=== PATIENT | male | born 1950 | race Caucasian/White ===

== ENCOUNTER → 2023-12-02 09:07 | Outpatient (REF) | payer MEDICARE, OTHER, SELFPAY | LOC: RAD 09:07 | PROVIDERS: ATTENDING PHYSICIAN Specialist; FAMILY PHYSICIAN Family Medicine | DX: N20.0 Calculus of kidney (principal) | CPT/HCPCS: 74018 ==

== ENCOUNTER 2023-12-10 09:14 | Outpatient (RCR) | payer MEDICARE, OTHER, SELFPAY | END 2023-12-10 23:59 | disposition home or self-care (01) | LOC: RPT 09:14 | PROVIDERS: ATTENDING PHYSICIAN Orthopaedic Surgery; FAMILY PHYSICIAN Family Medicine | DX: M47.816 Spondylosis without myelopathy or radiculopathy, lumbar region (principal); M54.16 Radiculopathy, lumbar region; Z73.6 Limitation of activities due to disability | CPT/HCPCS: 97110; 97162 ==

== ENCOUNTER 2024-01-07 08:55 | Outpatient (RCR) | payer MEDICARE, OTHER, SELFPAY | END 2024-01-09 10:27 | disposition home or self-care (01) | LOC: RPT 08:55 | PROVIDERS: ATTENDING PHYSICIAN Orthopaedic Surgery; FAMILY PHYSICIAN Family Medicine | DX: M47.816 Spondylosis without myelopathy or radiculopathy, lumbar region (principal); M54.16 Radiculopathy, lumbar region; Z73.6 Limitation of activities due to disability | CPT/HCPCS: 97110; 97140 ==

== ENCOUNTER → 2025-02-12 13:59 | Outpatient (REF) | payer MEDICARE, OTHER, SELFPAY ==
[2025-02-12 16:23] LABS: Blood Urea Nitrogen 19 mg/dl (9-20)
== END ==
LOC: REG 13:59
PROVIDERS: ATTENDING PHYSICIAN Physical Medicine & Rehabilitation
DX: M54.16 Radiculopathy, lumbar region (principal)
CPT/HCPCS: 36415; 82565; 84520

== ENCOUNTER → 2025-04-16 10:55 | Outpatient (REF) | payer MEDICARE, OTHER, SELFPAY | LOC: MRI 3T 10:55 | PROVIDERS: ATTENDING PHYSICIAN Physical Medicine & Rehabilitation; FAMILY PHYSICIAN Family Medicine | DX: M54.16 Radiculopathy, lumbar region (principal); Z98.890 Other specified postprocedural states | CPT/HCPCS: 72158; A9575 ==

== ENCOUNTER 2025-05-07 20:12 | Observation (INO) | payer MEDICARE, OTHER, SELFPAY ==
[2025-05-07] VITALS (10 sets, daily range): BP systolic 137–205; BP diastolic 80–112; BMI 20.4
[2025-05-07 16:03] LABS: Hematocrit 41.6 % (39.0-52.0); Hemoglobin 14.0 g/dL (13.0-18.0); Mean Corp Hgb Conc. 33.7 g/dL (33.0-37.0); Mean Corpuscular Volume 97.9 fL (80.0-94.0); Nucleated Red Blood Cells % 0 % (-); Platelet Count 213 10^3/uL (130-400); Red Cell Dist. Width 12.4 % (11.5-14.5)
[2025-05-07 16:20] LABS: ALT (SGPT) 22 U/L (0-50); AST (SGOT) 28 U/L (17-59); Albumin 4.9 g/dl (3.5-5.0); Alkaline Phosphatase 55 U/L (38-126); Blood Urea Nitrogen 20 mg/dl (9-20); Calcium 10.3 mg/dl (8.4-10.2); Carbon Dioxide 26 mmol/L (22-30); Chloride 104 mmol/L (98-107); Glucose 94 mg/dl (70-99); Potassium 5.7 mmol/L (3.5-5.1); Sodium 138 mmol/L (135-145); Total Protein 7.9 g/dl (6.3-8.2); eGFR > 60.00
--- NOTE | 2025-05-07 17:42 | ED.GENMED ---
History of Present Illness
<Bijan Tompkins MD, Resident - Last Filed: 05/07/25 19:24>
General
Chief Complaint: Blood Pressure Problem
Time Seen by Provider: 05/07/25 17:24
History of Present Illness
History of Present Illness:
75 yo M PMH HTN, HLD, anxiety, spinal stenosis p/w hypertension to 180-190s systolic since Saturday (after he received an epidural to manage spinal stenosis pain).
At home, he takes atenolol 25mg and reports that his BP was well controlled with 120-130s systolic / 60-70s diastolic. He reports no clear precipitating event other than the epidural on Saturday, and Mohs surgery of left ear this past Saturday. No
change to diet, no starting/stopping medications.
he denies headache, blurry vision, chest pain, dyspnea, abdominal pain, new focal numbness or weakness.
<Yamilet Breen MD - Last Filed: 05/07/25 20:34>
General
Source: patient
Exam Limitations: none
Nursing documentation reviewed up to this point in time: agreed with
Past History
<Bijan Tompkins MD, Resident - Last Filed: 05/07/25 19:24>
Past History
ED Past Medical History: HTN
ED Past Surgical History: Orthopedic
Social History
Tobacco: Non-smoker
Alcohol: None
Drug: None
<Yamilet Breen MD - Last Filed: 05/07/25 20:34>
Family History
Family History: Other
Review of Systems
<Bijan Tompkins MD, Resident - Last Filed: 05/07/25 19:24>
Review of Systems
Constitutional: Reports no symptoms
EENT: Reports no symptoms
Respiratory: Reports no symptoms
Cardiac: Reports no symptoms
ABD/GI: Reports no symptoms
Neurological: Reports no symptoms
<Yamilet Breen MD - Last Filed: 05/07/25 20:34>
Review of Systems
Allergies reviewed?: Yes
: Reports no symptoms
Musculoskeletal: Reports no symptoms
Skin: Reports no symptoms
Endocrine: Reports no symptoms
Hematologic/Lymphatic: Reports no symptoms
Psychiatric: Reports no symptoms
Phy Exam
<Bijan Tompkins MD, Resident - Last Filed: 05/07/25 19:24>
Physical Exam
Physical Exam:
VS: 188/102; HR 62, T 98.1, 99%
General: no acute distress
CV: no murmurs on my exam
Pulm: CTAB
GI: + bowel sounds, no tenderness to palpation
MSK: no lower extremity edema
Neuro: AOx2, PERRLA, EOMI, motor function grossly nonfocal
<Yamilet Breen MD - Last Filed: 05/07/25 20:34>
Physical Exam
Physical Exam:
VS: 188/102; HR 62, T 98.1, 99%
General: no acute distress
CV: no murmurs on my exam
Pulm: CTAB
GI: + bowel sounds, no tenderness to palpation
MSK: no lower extremity edema
Neuro: AOx2, PERRLA, EOMI, motor function grossly nonfocal
Physical Exam
General: no apparent distress, not acutely ill. Well and comfortable appearing, smiling
Neck: supple. no meningeal signs. normal psoterior pharynx
Heart: s1/s2 regular rate and rhythm, no murmur. equal radial pulses.
Lungs: no acute respiratory distress. clear bilaterally
Abdomen: normal bowel sounds. not tender. no CVAT
Neuro: alert and oriented. no focal neurological deficits
Skin: no rash
Psychiatric: well kept. interactive and cooperative
Extremities: no edema. no calf tenderness. negative homans. good distal pulses
Course
<Bijan Tompkins MD, Resident - Last Filed: 05/07/25 19:24>
Orders/Labs/Results
Orders:
Orders
05/07/25 15:46
CMP [Comprehensive Metabolic Panel] Urgent
Complete Blood Count/With Diff Urgent
05/07/25 18:03
EKG [Electrocardiogram (*1)] Urgent
Reason for Study: Hypertension, Benign
EKG- Treatment ONCE
05/07/25 18:06
0.9% Sodium Chloride 1000 ml [Nss] 1,000 ml IV BOLUS
05/07/25 18:19
Calcium Gluconate 1,000 mg IV NOW STA
Dextrose 50%-Water [Dextrose 50% Syringe] 12.5 grams IV [id number] PRN
Dextrose 50%-Water [Dextrose 50% Syringe] 25 grams IV NOW STA
Insulin Human Regular [Novolin R] 10 units IV NOW STA
05/07/25 18:20
HydrALAZINE [Apresoline] 10 mg PO NOW STA
Bedside Glucose PRE IV Insulin- HyperK+ NOW
05/07/25 19:42
Admit/Transfer Patient As Directed
Co-Sign Provider:
Level of Care: Observation services
Assign to:: Telemetry
Physician / Group: aguilar
Diagnosis: HTN emergency
Reason for Telemetry: Other
Other Reason for Telemetry: HTN urgency, hyperkalemia
Date to Stop Telemetry: 05/09/25
Time to Stop Telemetry: 11:00
Reason for Hospitalization: HTN urgency
hyperkalemia
Expected length of stay greater than two midnights?: Yes
ELOS- Estimated Length of Stay in days: 3
I certify the patient meets the requirements for IP care: Yes
05/07/25 19:43
Code Status As Directed
Resuscitation Status: Full Code
PRN Pain Medication Management As Directed
May give lesser potent ordered pain med per pt: Yes
preference::
Protocol:: Medication orders for pain may be administered in a
manner that supports deferring to patient preference
when the pt is:
- Requesting an ordered lesser potent pain medication.
Least to most potent pain medications are defined
as: acetaminophen < NSAID < tramadol < opioids
(morphine, oxycodone, hydromorphone).
- Requesting a lesser dose of the same medication IF
ORDERED.
- Requesting a less intrusive route of administration
if both routes are prescribed by the provider (PO <
IV).
05/07/25 19:50
Bedside Glucose POST IV Insulin- HyperK+ Q1HX2,Q2HX2
05/07/25 20:50
Potassium Urgent
Comment: draw 2 hours after regular insulin IV administration
05/09/25 11:00
DC Protocol for Telemetry ONCE
Abnormal Lab Results
05/07/25 05/07/25
15:46 19:54
RBC 4.25 L 10^6/uL
(4.70-6.10)
MCV 97.9 H fL
(80.0-94.0)
MCH 32.9 H pg
(27.0-31.0)
Absolute Monos (auto) 0.8 H 10^3/uL
(0.1-0.6)
Potassium 5.7 H mmol/L
(3.5-5.1)
Calcium 10.3 H mg/dl
(8.4-10.2)
Total Bilirubin 1.4 H mg/dl
(0.2-1.3)
POC Glucose 63 L mg/dl
(70-99)
05/07/25 15:46
05/07/25 15:46
Vital Signs
Initial and Last Documented VS:
Initial Vital Signs
Temp Pulse Resp BP Pulse Ox
98.1 F 62 20 188/102 99
05/07/25 15:38 05/07/25 15:38 05/07/25 15:38 05/07/25 15:38 05/07/25 15:38
Last Documented Vital Signs
Temp Pulse Resp BP Pulse Ox
98.1 F 71 18 166/112 97
05/07/25 15:38 05/07/25 20:00 05/07/25 20:00 05/07/25 20:00 05/07/25 19:45
<Yamilet Breen MD - Last Filed: 05/07/25 20:34>
Orders/Labs/Results
Orders:
Orders
05/07/25 15:46
CMP [Comprehensive Metabolic Panel] Urgent
Complete Blood Count/With Diff Urgent
05/07/25 18:03
EKG [Electrocardiogram (*1)] Urgent
Reason for Study: Hypertension, Benign
EKG- Treatment ONCE
05/07/25 18:06
0.9% Sodium Chloride 1000 ml [Nss] 1,000 ml IV BOLUS
05/07/25 18:19
Calcium Gluconate 1,000 mg IV NOW STA
Dextrose 50%-Water [Dextrose 50% Syringe] 12.5 grams IV [id number] PRN
Dextrose 50%-Water [Dextrose 50% Syringe] 25 grams IV NOW STA
Insulin Human Regular [Novolin R] 10 units IV NOW STA
05/07/25 18:20
HydrALAZINE [Apresoline] 10 mg PO NOW STA
Bedside Glucose PRE IV Insulin- HyperK+ NOW
05/07/25 19:42
Admit/Transfer Patient As Directed
Co-Sign Provider:
Level of Care: Observation services
Assign to:: Telemetry
Physician / Group: aguilar
Diagnosis: HTN emergency
Reason for Telemetry: Other
Other Reason for Telemetry: HTN urgency, hyperkalemia
Date to Stop Telemetry: 05/09/25
Time to Stop Telemetry: 11:00
Reason for Hospitalization: HTN urgency
hyperkalemia
Expected length of stay greater than two midnights?: Yes
ELOS- Estimated Length of Stay in days: 3
I certify the patient meets the requirements for IP care: Yes
05/07/25 19:43
Code Status As Directed
Resuscitation Status: Full Code
PRN Pain Medication Management As Directed
May give lesser potent ordered pain med per pt: Yes
preference::
Protocol:: Medication orders for pain may be administered in a
manner that supports deferring to patient preference
when the pt is:
- Requesting an ordered lesser potent pain medication.
Least to most potent pain medications are defined
as: acetaminophen < NSAID < tramadol < opioids
(morphine, oxycodone, hydromorphone).
- Requesting a lesser dose of the same medication IF
ORDERED.
- Requesting a less intrusive route of administration
if both routes are prescribed by the provider (PO <
IV).
05/07/25 19:50
Bedside Glucose POST IV Insulin- HyperK+ Q1HX2,Q2HX2
05/07/25 20:50
Potassium Urgent
Comment: draw 2 hours after regular insulin IV administration
05/09/25 11:00
DC Protocol for Telemetry ONCE
Abnormal Lab Results
05/07/25 05/07/25
15:46 19:54
RBC 4.25 L 10^6/uL
(4.70-6.10)
MCV 97.9 H fL
(80.0-94.0)
MCH 32.9 H pg
(27.0-31.0)
Absolute Monos (auto) 0.8 H 10^3/uL
(0.1-0.6)
Potassium 5.7 H mmol/L
(3.5-5.1)
Calcium 10.3 H mg/dl
(8.4-10.2)
Total Bilirubin 1.4 H mg/dl
(0.2-1.3)
POC Glucose 63 L mg/dl
(70-99)
05/07/25 15:46
05/07/25 15:46
Vital Signs
Initial and Last Documented VS:
Initial Vital Signs
Temp Pulse Resp BP Pulse Ox
98.1 F 62 20 188/102 99
05/07/25 15:38 05/07/25 15:38 05/07/25 15:38 05/07/25 15:38 05/07/25 15:38
Last Documented Vital Signs
Temp Pulse Resp BP Pulse Ox
98.1 F 71 18 166/112 97
05/07/25 15:38 05/07/25 20:00 05/07/25 20:00 05/07/25 20:00 05/07/25 19:45
<Bijan Tompkins MD, Resident - Last Filed: 05/07/25 19:24>
MDM/Problems Addressed
Differential Diagnosis Includes:
HTN urgency, HTN emergency, increased ICP, medication nonadherence, substance abuse, anxiety, pheochromocytoma
MDM/Problems Addressed:
75 yo M PMH HTN, HLD, spinal stenosis with HTN to 180s with no clear explanation
Initial labs disclosed K+ 5.7 with possible peaked T-waves on EKG
There is no clear explanation for the elevated HTN (could be steroids related to the epidural) or hyperkalemia.
Plan:
CBC, CMP
EKG
Hydralazine 10mg PO
Treat hyperkalemia with calcium gluconate 1000mg IV; insulin and D5W;
1L NS to treat with fluids
Will admit to hospitalist for uncontrolled, asymptomatic HTN and hyperkalemia of unclear etiology
follow-up potassium ordered for 20:50
<Yamilet Breen MD - Last Filed: 05/07/25 20:34>
MDM/Problems Addressed
Chronic conditions affecting care: HTN
Acute Exacerbation and/or Progression of Chronic Illness: HTN
<Bijan Tompkins MD, Resident - Last Filed: 05/07/25 19:24>
*Pulse Oximetry
SaO2: 99
Oxygen Mode of Delivery: Room air
Patient hypoxic: no
*Critical Care Note
Total Time (30-74mins, 75-104mins- exclusive of procedures): Not Applicable
<Yamilet Breen MD - Last Filed: 05/07/25 20:34>
*EKG
Interpreted by ED Provider?: Yes
Interpretation: abnormal
Comparison EKG: no comparison EKG present
Rate: normal
Rhythm: sinus
[place]: normal axis
Interval: normal interval
QRS Pattern: normal QRS
Ischemia: non-specific ST changes
*Nailhead Operator Interpretation
Rate: normal
Interpretation: normal
Rhythm: sinus
Data Reviewed
Source: patient
<Yamilet Breen MD - Last Filed: 05/07/25 20:34>
Patient Management
Social determinants of health affecting care: Living situation and Strong social support
Discussion with other providers: Hospitalist
ED Attending Note
<Bijan Tompkins MD, Resident - Last Filed: 05/07/25 19:24>
-
Portions of this chart may have been created with voice recognition software.� Occasional wrong word or��sound alike� substitutions may have occurred due to the inherent limitations of voice recognition software.
Discharge Plan
Departure
Patient Disposition: Admit
Date of Disposition: 05/07/25
Time of Disposition: 19:22
Admit to: Telemetry
Presentation/result/management discussed w/ accepting MD/DO: Hospitalist
Patient with high blood pressure during this ER visit?: Yes
Condition: Good
Discharge Problem:
Hypertension, Hyperkalemia
Interventions
Interventions:
*General Assessment Last Done: 05/07/25 17:59
*Neglect/Abuse Screening Last Done: 05/07/25 15:41
*ED COVID-19 Vaccine History Last Done: 05/07/25 17:59
*ED Influenza Vaccine History Last Done: 05/07/25 17:59
[facility] Fall Risk Assessment Tool Last Done: 05/07/25 18:02
*Risk Screen - Suicide (C-SSRS) Last Done: 05/07/25 15:41
ED- Cardiac Assessment Last Done: 05/07/25 20:10
ED- Neurological Assessment Last Done: 05/07/25 20:10
ED- Pulmonary Assessment Last Done: 05/07/25 20:10
[2025-05-07] MEDS: NSS 1000 IV (18:19)
[2025-05-07 18:35] LABS: Glucose - Point of Care 97 mg/dl (70-99)
[2025-05-07] MEDS: NOVOLIN R 10 UNITS IV (18:35)
[2025-05-07] MEDS: DEXTROSE 50% SYRINGE 25 GRAMS IV (18:35)
[2025-05-07] MEDS: APRESOLINE 10 MG PO (18:37)
[2025-05-07] MEDS: CALCIUM GLUCONATE 1000 MG IV (18:44)
--- NOTE | 2025-05-07 19:23 | HPS.HSE ---
Addendum entered and electronically signed by Chapo Moore DO 05/07/25 21:06:
Patient seen and examined independently. Agree with findings and plan as set forth by JUAN Casper.
Patient is a 75y M with PMH significant for hypertension and spinal stenosis who presents to ED for evaluation of elevated BP and 'jittery' feeling. Patient states that his BP is typically 120-130 systolic. He underwent LESI on Saturday of this
week and Mohs surgery to the L ear on Saturday. Today he was driving when he felt sudden chill / jittery sensation. he checked his BP at home and noted that it was very high at 190/90. He denied any chest pain or dyspnea. No headache or vision
changes. He states that he did feel somewhat anxious.
Patient presented to the ED for further evaluation.
Ass:
Uncontrolled Hypertension
Mild Hyperkalemia
Hypothyroidism
DM-II
Spinal Stenosis s/p LESI
Skin Cancer s/p Mohs (05/04)
BPH
Plan:
Observe overnight for further evaluation.
Amlodipine dose now and continue usual atenolol starting in AM.
Follow BP and PRN hydralazine as needed for very high BP.
Follow fever curve and monitor for any new / focal symptoms or complaints.
Monitor for improvement in K levels after IVFs, etc.
Original Note:
Family Physician
-
Family Physician: Juan Peterson MD
Chief Complaint
-
elevated blood pressure
History of Present Illness
75 yo M PMH HTN, HLD, anxiety, spinal stenosis presented to us with elevated blood pressure. patient underwent epidural injection on Saturday. one his way back, he felt jittery and his teeth were chattering. he checked his blood pressure and noted to
have BP of 180 over 100. he took his atenolol and BP improved to 100/55. he underwent MOHS surgery on Saturday. upon getting back home, his BP were elevated again in 180's. last night he was not able to sleep and his blood pressure was elevated. he
took atenolol and 2 baby asa. today his BP was in 190's which prompted him to come to the ER. denied POPE, blurry vision, numbness and tingling. denied chest pain, sob. denied fever, chills, cough,congestion. denied abdominal pain,n,v,d. denied
dysuria or hematuria.
upon arrival he was noted hypertensive and hyperkalemia. Patient received calcium gluconate, D50, hydralazine, insulin, normal saline in the ER. Admitting for further management
Medical History
Past Medical History
Past Medical History: Reports Other
Additional Past Medical History:
BPH, DM, HTN, Glaucoma, hypothyroidism, nephrolithiasis, prostatics,
Past Surgical History: Reports Other
Additional Past Surgical History:
spinal decompression, right THR
Social History
Tobacco: Non-smoker
Alcohol: None
Drug: None
Personal: Single
Living: Alone
Family History
Family History: Not pertinent
Allergies / Home Medications
Allergies reflects when Allergies were last updated in [facility].
Home Medications with original date entered in [facility]
Allergy/Medication List:
Allergies
Allergy/AdvReac Type Severity Reaction Status Date / Time
No Known Allergies Allergy Unverified 07/24/18 11:25
Review of Systems
-
Constitutional: Reports No Symptoms
EENT: Reports No Symptoms
Respiratory: Reports No Symptoms
Cardiac: Reports No Symptoms
Abdomen/GI: Reports No Symptoms
: Reports No Symptoms
Musculoskeletal: Reports No Symptoms
Skin: Reports No Symptoms
Neurological: Reports No Symptoms
Endocrine: Reports No Symptoms
Hematologic/Lymphatic: Reports No Symptoms
Psych: Reports No Symptoms
Physical Exam
Vital Signs
Vital Signs
Temp Pulse Resp BP Pulse Ox
98.1 F 68 23 185/95 98
05/07/25 15:38 05/07/25 19:00 05/07/25 19:00 05/07/25 19:00 05/07/25 19:00
Physical Exam
General: Well Developed, Well Nourished and No Apparent Distress
HEENT: NormoCephalic, Moist mucous membranes and Atraumatic
Respiratory: Clear
Cardiac: S1/S2 and Regular Rhythm; No Murmur or Rub
GI: Soft, Non Tender, Non Distended and Normal Bowel Sounds; No Organomegaly
Rectal: Deferred by Provider
Musculoskeletal: No Clubbing, No Cyanosis and No Edema
Skin: No Rash
Neuro: AO x 3 and Nonfocal/grossly intact
Psych: Calm
Laboratory Results
-
05/07/25 15:46
Laboratory Results
Total Bilirubin 1.4 mg/dl (0.2-1.3) H 05/07/25 15:46
AST 28 U/L (17-59) 05/07/25 15:46
ALT 22 U/L (0-50) 05/07/25 15:46
Alkaline Phosphatase 55 U/L (38-126) 05/07/25 15:46
Data Reviewed
-
Lab Data: Labs Reviewed by me
Impression/Plan
-
#HTN emergency likely from steroid injection.
-hydralazine in ER
-continue atenolol
-monitor BP
-Norvasc once in ER
#hyperkalemia
-k 5.7
-IL NS, calcium, insulin in ER
-ctm BMP
#hypothyroidism
-levothyroxine continued
#type 2 Dm
-hold metformin
-sliding scale
-CHO diet
#hxt of spinal stenosis
-recent epidural injection with [facility]
#left ear basal cell ca
-s/p MOHS surgery
#BPH
-finasteride continued
#DVT Prophylaxis
-Lovenox
#CODE status
-full code
[2025-05-07 19:55] LABS: Glucose - Point of Care 63 mg/dl (70-99)
[2025-05-07 20:25] LABS: Glucose - Point of Care 75 mg/dl (70-99)
[2025-05-07] MEDS: NORVASC 5 MG PO (20:36)
[2025-05-07 21:08] LABS: Potassium 4.1 mmol/L (3.5-5.1)
[2025-05-07 21:19] LABS: Glucose - Point of Care 116 mg/dl (70-99)
[2025-05-07] MEDS: XALATAN OPHTHALMIC SOLUTION 1 DROP BOTH EYES (22:06)
--- NOTE | 2025-05-07 22:53 | PTCARENOTE ---
Pt arrived to floor via stretcher from the ED. Pt able to ambulate from stretcher to room independently without issues. Pt AAOx3. HR in the 60's in NSR with PVC's on the monitor. Lungs clear. POX 97% on RA. + bowel. Pt able to ambulate to bathroom
as needed. Palpable peripheral pulses. Left forearm int capped. Left ear sutures in place post Mohs procedure, open to air. pt denies any complaints of pain at this time. Vitaly jaffe notified of elevated BP. No orders obtained at this time.
Will continue to trend BP. Call bennett in reach. Will continue to monitor.
[2025-05-07 23:19] LABS: Glucose - Point of Care 88 mg/dl (70-99)
[2025-05-08 01:05] LABS: Glucose - Point of Care 101 mg/dl (70-99)
[2025-05-08] MEDS: APRESOLINE 10 MG IV (01:09)
[2025-05-08 01:15] VITALS: BP 185/90
[2025-05-08 03:00] VITALS: BP 142/87
--- NOTE | 2025-05-08 05:09 | PTCARENOTE ---
Pt awake intermittently t/o the night. Pt asking this am to have BP checked. Pt indicated he felt jittery and anxious. BP 154/87. After some discussion pt expressed frequent feelings of being paranoid, anxious and jittery. Pt reports when having
these feelings is when he is checking BP which is elevated only increasing his anxiety. Pt educated on relaxation techniques and finding ways to decrease anxiety. Pt educated on role of anxiety in relation to elevated BP. Pt reports understanding.
[2025-05-08] MEDS: SYNTHROID 100 MCG PO (05:36)
[2025-05-08 07:27] VITALS: BP 147/77
[2025-05-08 08:02] LABS: Glucose - Point of Care 89 mg/dl (70-99)
[2025-05-08] MEDS: PROSCAR 5 MG PO (08:11)
[2025-05-08] MEDS: TENORMIN 25 MG PO (08:12)
[2025-05-08] MEDS: PROCARDIA XL (EXTENDED RELEASE) 30 MG PO (08:12)
[2025-05-08 08:33] LABS: Reticulocyte Count 1.1 % (0.4-2.8)
[2025-05-08 09:11] LABS: ALT (SGPT) 20 U/L (0-50); AST (SGOT) 25 U/L (17-59); Albumin 4.4 g/dl (3.5-5.0); Alkaline Phosphatase 59 U/L (38-126); Blood Urea Nitrogen 15 mg/dl (9-20); Calcium 9.6 mg/dl (8.4-10.2); Carbon Dioxide 24 mmol/L (22-30); Chloride 106 mmol/L (98-107); Estimated Creatinine Clearance 65 ml/min; Glucose 96 mg/dl (70-99); LDH 193 U/L (120-246); Potassium 4.1 mmol/L (3.5-5.1); Sodium 139 mmol/L (135-145); Total Protein 7.2 g/dl (6.3-8.2); eGFR > 60.00
[2025-05-08 09:31] LABS: TSH 2.05 uIU/ml (0.47-4.68)
--- NOTE | 2025-05-08 09:37 | W.PN.HOSP.TC ---
Today's Communication/Plan
-
dc
Assessment / Plan
Assessment / Plan
75yo M with PMhx of HTN, spina stenosis s/p epidural 5 days ago, skin CA on L ear s/p Mohs 4 days ago developed progressively elevated BP at [facility] and came to the hospital. He felt anxious after his previous procedures which is a usual for him, but
he was able to control it with environmental interventions. In ED found uncontrolled HTN
A/P:
#HTN urgency
Added nifedipine
daily BP and keep log to present to PCP in 7 days upon d/c
monitor BP in hospital 6-8h after new meds and d/c if <180/105
#DM type 2 with unspecified complications
cotn metformin upon d/c
DM diet
#Elevated indirect bilirubinemia 2/2 [place]
with normal LDH and retics
#macrocytosis
B12, folate WNL
#Frequent PACs
SR on tele
cont BB
#Hypothyroidism
#HLD
#BPH
#Spinal stenosis
cont home meds
TSH WNL
#Anxiety
defer for medical mgmt to PCP as patient can control it with environmental changes: sitting in quiet place, exercising
DVT ppx lovenox
Full code
I have spent at least 86min reviewing hcart, test results, providing direct patient care
Anticipated Discharge: Today
Subjective/Interval History
-
Date of Service: May 08, 2025
Objective Data
-
Labs:
Laboratory Results
05/08/25
07:37
Sodium 139
Potassium 4.1
Chloride 106
Carbon Dioxide 24
BUN 15
Creatinine 0.8
Glucose 96
Calcium 9.6
Total Bilirubin 1.5 H
AST 25
ALT 20
Alkaline Phosphatase 59
Vital Signs:
Vital Signs
Temp Pulse Resp BP Pulse Ox
98.6 F 87 18 147/77 97
05/08/25 07:27 05/08/25 07:27 05/08/25 07:27 05/08/25 07:27 05/08/25 07:27
Review of Systems
-
History Source: Patient
All other systems: Reviewed and negative
Physical Exam
-
General: No Apparent Distress
HEENT: Normocephalic
Respiratory: Clear to Auscultation
Cardiac: Irregular Rhythm
GI: Soft, Nontender and Nondistended
Genito-urinary: No Costovertebral Tender
Musculoskeletal: No Clubbing, No Cyanosis and No Edema
Neuro: Awake, Alert, Oriented, AO x 3 and No Motor Deficits
Psych: Calm
[2025-05-08] MEDS: TYLENOL 650 MG PO (09:40)
[2025-05-08 10:06] LABS: Folate 17.8 ng/ml (2.76-20); Vitamin B12 603 pg/ml (239-931)
[2025-05-08 11:42] VITALS: BP 116/62
[2025-05-08 12:29] LABS: Glucose - Point of Care 97 mg/dl (70-99)
[2025-05-08 12:43] LABS: Glycohemoglobin (HgbA1c) 5.7 % (4.0-5.9)
--- NOTE | 2025-05-08 15:13 | W.DCSUMMARY ---
Discharge Summary
Discharge Data
Date of Admission: 05/07/25
Date of Discharge: 05/08/25
-
Pending Results: No
Hospital Course
75yo M with PMhx of HTN, spina stenosis s/p epidural 5 days ago, skin CA on L ear s/p Mohs 4 days ago developed progressively elevated BP at [facility] and came to the hospital. He felt anxious after his previous procedures which is a usual for him, but
he was able to control it with environmental interventions. In ED found uncontrolled HTN. Improved with small additional dose of Nifedipine. At the time of D/C patient without headache, no lightheadedness, feeling well. Counseled to measure BP
daily and bring log to PCP of at least 7 days. Medically stable for d/c home
I have spent at least b86min reviewing chart, test results, providing direct patient care
Patient was managed for:
#HTN urgency
#DM type 2 with unspecified complications
#Elevated indirect bilirubinemia 2/2 [place]
#macrocytosis
#Frequent PACs
#Hypothyroidism
#HLD
#BPH
#Spinal stenosis
#Anxiety
Discharge Plan
-
Patient Disposition: Home (Routine Discharge)
Discharge Diagnosis/Procedures: HTN urgency
Diet: Low Cholesterol and 2 Gram Sodium
Referrals:
Juan Peterson MD [Family Provider] - in one week
Prescriptions:
New
nifedipine 30 mg Tablet Extended Release
30 mg PO DAILY Qty: 30 0RF
Continued
latanoprost 0.005 % drops
1 drp ophthalmic (eye) DAILY
metformin 500 mg tablet
1,000 mg PO BID
levothyroxine 100 mcg tablet
100 mcg PO DAILY
ergocalciferol (vitamin D2) 1,250 mcg (50,000 unit) capsule
1 mcg PO WEEKLY
finasteride 5 mg tablet
5 mg PO DAILY
icosapent ethyl 1 gram capsule
1 g PO DAILY
atenolol 25 mg Tablet
25 mg PO DAILY
Discharge Orders:
Discharge Patient (As Directed); Ordered 05/08/25
Ordered By: Kevin Owens
Discharge Date and Time
Print Language: GEORGIAN
--- NOTE | 2025-05-08 15:22 | PTCARENOTE ---
Pt has been ambulating in his room throughout the day. No dizziness or lightheadedness. Pt says he feels 'pretty good overall'. Dr Owens made aware. Ok to DC home.
[2025-05-08 15:53] VITALS: BP 104/58
--- NOTE | 2025-05-08 16:22 | CM ---
IA completed. IND at home. MODI given and placed in chart. Lives alone in a 2 story home with a walkin shower on the first floor. There are 3 steps at the entrance of the home and 13 to the second floor..Remote history (10yrs) of HH and SNF post a
hip replacement. No DME, home O2 or insecurities identified. Confirmed RX, insurance and drug coverage. PCP is incorrect in computer. Admissions notified to [facility]
PCP: Juan Ervin in [place]
RX: [facility] [place] [facility]/[address]
Pt is discharged home and will drive himself
[2025-05-08 18:57] LABS: Hepatitis C Antibody Negative (Negative)
== END 2025-05-08 17:03 | disposition home or self-care (01) ==
LOC: 4 EAST ACU 20:12
PROVIDERS: Emergency Medicine; Registered Nurse; ADMITTING PHYSICIAN Hospitalist; ATTENDING PHYSICIAN Internal Medicine; EMERGENCY PHYSICIAN Emergency Medicine; FAMILY PHYSICIAN Family Medicine
DX: I16.0 Hypertensive urgency (principal); E87.5 Hyperkalemia; E11.9 Type 2 diabetes mellitus without complications; E80.4 Gilbert syndrome; D75.89 Other specified diseases of blood and blood-forming organs; E03.9 Hypothyroidism, unspecified; E78.5 Hyperlipidemia, unspecified; N40.0 Benign prostatic hyperplasia without lower urinary tract symptoms; M48.00 Spinal stenosis, site unspecified; F41.9 Anxiety disorder, unspecified; I10 Essential (primary) hypertension; Z85.828 Personal history of other malignant neoplasm of skin; Z87.442 Personal history of urinary calculi; Z79.890 Hormone replacement therapy
CPT/HCPCS: 80053; 82248; 82607; 82746; 82962; 83036; 83615; 84132; 84443; 85025; 85045; 86803; 93005; 96361; 96374; 96375; 99284; G0378